=== PATIENT | male | born 1985 | race Two or more races ===

== ENCOUNTER 2017-07-01 11:50 | Emergency (ER) | payer SELFPAY ==
[2017-07-01] MEDS ORDERED: Ketorolac 60 MG/2 ML SDV IM ONE (12:31)
--- NOTE | 2017-07-01 12:31 | EDM.PDOC ---
ED HPI GENERAL MEDICAL PROBLEM - General Chief Complaint: ENT Problem Stated Complaint: SWOLLEN THROAT Time Seen by Provider: 07/01/17 11:51 Source of Information: Reports: Patient History Limitations: Reports: No Limitations - History of Present Illness INITIAL COMMENTS - FREE TEXT/NARRATIVE: HISTORY AND PHYSICAL: History of present illness: [Patient comes to the emergency room complaining of an exquisitely sore throat. Symptoms started yesterday and were mild but woke up this morning due to pain in being significantly worse today. He denies fever and chills. No headache or earaches. Pain worsens with swallowing. No cough, chest pain, shortness of breath or difficulty breathing. Occasional nausea but no vomiting. He denies abdominal pain. Was unable to work today due to the pain. He has not taken any medication for his symptoms. No previous history of similar symptoms in the past.] Review of systems: As per history of present illness and below otherwise all systems reviewed and negative. Past medical history: As per history of present illness and as reviewed below otherwise noncontributory. Surgical history: As per history of present illness and as reviewed below otherwise noncontributory. Social history: No reported history of drug or alcohol abuse. Family history: As per history of present illness and as reviewed below otherwise noncontributory. Physical exam: HEENT: Atraumatic, normocephalic. Oral mucous membranes are pink and moist. Posterior oropharynx is brightly erythematous and swollen. Uvula is enlarged, brightly erythematous and appears to be touching the back of his tongue. Neck is supple, no lymphadenopathy is appreciated. Lungs: Clear to auscultation, breath sounds equal bilaterally. Heart: S1S2, regular rate and rhythm. Abdomen: Soft, nondistended, nontender. Masses guarding or rebound. Pelvis: Stable nontender. Genitourinary: Deferred. Rectal: Deferred. Extremities: Atraumatic. Neurovascular unremarkable. Neuro: Awake, alert, oriented. Cranial nerves II through XII unremarkable. Cerebellum unremarkable. Motor and sensory unremarkable throughout. Exam nonfocal. Diagnostics: [Strep swab] Therapeutics: [ibuprofen 800mg po, Rocephin 1 g IM] Impression: [Uvulitis] Plan: [Strep swab is negative. Will treat with Amoxicillin 875 mg #20 sig one by mouth twice a day 0 refills. Rocephin 1 g IM given in ER. Instructed patient to push fluids, get plenty of rest, Tylenol alternating with ibuprofen. Strict return precautions are reviewed. Patient in agreement with today's plan.] Definitive disposition and diagnosis as appropriate pending reevaluation and review of above. throat Pain Score (Numeric/FACES): 10 - Related Data Allergies Allergy/AdvReac Type Severity Reaction Status Date / Time No Known Allergies Allergy Verified 07/01/17 12:12 Home Meds: Home Meds . [No Known Home Meds] 07/01/17 [History] Past Medical History - Past Health History Medical/Surgical History: Denies Medical/Surgical History Social & Family History - Family History Family Medical History: Noncontributory - Tobacco Use Smoking Status *Q: Never Smoker Second Hand Smoke Exposure: No - Caffeine Use Caffeine Use: Reports: Coffee, Soda - Recreational Drug Use Recreational Drug Use: Yes Recreational Drug Type: Reports: Marijuana/Hashish Recreational Drug Use Frequency: Daily ED ROS ENT - Review of Systems Review Of Systems: ROS reveals no pertinent complaints other than HPI. ED EXAM, ENT - Physical Exam Exam: See Below Course - Vital Signs Last Recorded V/S: Last Vital Signs Temp 98.0 F 07/01/17 12:12 Pulse 83 07/01/17 12:12 Resp 18 07/01/17 12:12 BP 109/62 07/01/17 12:12 Pulse Ox 98 07/01/17 12:12 - Orders/Labs/Meds Orders: Active Orders 24 hr Category Date Time Status CULTURE STREP A CONFIRMATION [RM] Stat Lab 07/01/17 12:30 Results STREP SCRN A RAPID W CULT CONF [RM] Stat Lab 07/01/17 12:30 Results Meds: Medications Discontinued Medications Generic Name Dose Route Start Last Admin Trade Name Freq PRN Reason Stop Dose Admin Ceftriaxone Sodium 1,000 mg/ 4 mls @ 4 mls/sec 07/01/17 12:56 07/01/17 13:07 Lidocaine HCl IM 07/01/17 12:57 4 mls/sec ONETIME ONE Administration Ibuprofen 800 mg 07/01/17 12:34 07/01/17 13:07 Motrin PO 07/01/17 12:35 800 mg ONETIME ONE Administration Ketorolac Tromethamine 60 mg 07/01/17 12:31 07/01/17 13:07 Toradol IM 07/01/17 12:32 Not Given ONETIME ONE Departure - Departure Time of Disposition: 12:55 Disposition: Home, Self-Care 01 Condition: Good Clinical Impression: Uvulitis - Discharge Information Instructions: Uvulitis Referrals: PCP,None [Primary Care Provider] - Forms: ED Department Discharge Additional Instructions: The following information is given to patients seen in the emergency department who are being discharged to home. This information is to outline your options for follow-up care. We provide all patients seen in our emergency department with a follow-up referral. The need for follow-up, as well as the timing and circumstances, are variable depending upon the specifics of your emergency department visit. If you don't have a primary care physician on staff, we will provide you with a referral. We always advise you to contact your personal physician following an emergency department visit to inform them of the circumstance of the visit and for follow-up with them and/or the need for any referrals to a consulting specialist. The emergency department will also refer you to a specialist when appropriate. This referral assures that you have the opportunity for follow-up care with a specialist. All of these measure are taken in an effort to provide you with optimal care, which includes your follow-up. Under all circumstances we always encourage you to contact your private physician who remains a resource for coordinating your care. When calling for follow-up care, please make the office aware that this follow-up is from your recent emergency room visit. If for any reason you are refused follow-up, please contact the [facility] emergency department at and asked to speak to the emergency department charge nurse. [facility] [address] [place] [id number] Follow-up with your primary care provider at the clinic listed above in 48-72 hours. Take antibiotics as prescribed. Push fluids, avoid dehydration, alternate Tylenol and ibuprofen as needed for discomfort. Return to ER as needed as discussed. - My Orders Last 24 Hours: My Active Orders 07/01/17 12:30 CULTURE STREP A CONFIRMATION [] Stat STREP SCRN A RAPID W CULT CONF [] Stat - Assessment/Plan Last 24 Hours: My Active Orders 07/01/17 12:30 CULTURE STREP A CONFIRMATION [RM] Stat STREP SCRN A RAPID W CULT CONF [RM] Stat
[2017-07-01] MEDS ORDERED: Ibuprofen 800 MG Tab PO ONE (12:34)
[2017-07-01] MEDS ORDERED: cefTRIAXone 1,000 MG in Lidocaine 1% 4 ML IM ONE (12:56)
== END 2017-07-01 13:48 | disposition home or self-care (01) ==
LOC: MW.ED 11:50
DX: K12.2 Cellulitis and abscess of mouth (principal)
CPT/HCPCS: 87081; 87880; 96372; 99283; A9270; J0696

== ENCOUNTER 2017-07-02 10:58 | Emergency (ER) | payer SELFPAY ==
[2017-07-02] MEDS ORDERED: Sodium Chloride 0.9% 10 ML Syringe FLUSH PRN (11:51)
[2017-07-02] MEDS ORDERED: Clindamycin Phosphate in D5W 600 MG in Premix Bag 50 BAG IV ONE ×2 (11:51)
[2017-07-02] MEDS ORDERED: Sodium Chloride 0.9% 2.5 ML Syringe FLUSH PRN (11:51)
--- NOTE | 2017-07-02 11:52 | EDM.PDOC ---
ED HPI GENERAL MEDICAL PROBLEM - General Chief Complaint: ENT Problem Stated Complaint: SORE THROAT Time Seen by Provider: 07/02/17 11:03 Source of Information: Reports: Patient History Limitations: Reports: No Limitations - History of Present Illness INITIAL COMMENTS - FREE TEXT/NARRATIVE: History of present illness: []Patient was seen yesterday for sore throat tested negative for strep but on amoxicillin. Patient returns with worsening pain in his throat and pressure on the left side of his neck. He has no difficulty swallowing, breathing or speaking. Review of systems: As per history of present illness and below otherwise all systems reviewed and negative. Past medical history: As per history of present illness and as reviewed below otherwise noncontributory. Surgical history: As per history of present illness and as reviewed below otherwise noncontributory. Social history: No reported history of drug or alcohol abuse. Family history: As per history of present illness and as reviewed below otherwise noncontributory. Physical exam: General: Well developed, well nourished in NAD HEENT: Atraumatic, normocephalic, pupils reactive, negative for conjunctival pallor or scleral icterus, mucous membranes moist, throat erythematous there is increased swelling on the left tonsillar area, neck supple, nontender, trachea midline. No stridor Lungs: Clear to auscultation, breath sounds equal bilaterally, chest nontender. Heart: S1S2, regular, negative for clicks, rubs, or JVD. Abdomen: Soft, nondistended, nontender. Negative for masses or hepatosplenomegaly. Negative for costovertebral tenderness. Pelvis: Stable nontender. Genitourinary: Deferred. Rectal: Deferred. Extremities: Atraumatic, negative for cords or calf pain. Neurovascular unremarkable. Neuro: Awake, alert, oriented. Cranial nerves II through XII unremarkable. Cerebellum unremarkable. Motor and sensory unremarkable throughout. Exam nonfocal. Diagnostics: []ct neck shows ill defined fluid collection 2x1.4 cm Therapeutics: []clindamycin and decadron given, toradol for pain, I attempted to drain the abscess with a 19-gauge needle without success. Dr. Khalil was consulted at [facility] as we do not have ENT coverage this week. He reviewed the CT and recommended steroids and clindamycin and for him to return to the ER if symptoms get worse as this may be an early abscess. Impression: []left peritonsillar abscess Plan: clindamycin, tramadol for pain, return to ED immediately if symptoms worsen Definitive disposition and diagnosis as appropriate pending reevaluation and review of above. Throat Pain Score (Numeric/FACES): 10 - Related Data Allergies Allergy/AdvReac Type Severity Reaction Status Date / Time No Known Allergies Allergy Verified 07/02/17 11:16 Home Meds: Home Meds Clindamycin HCl 300 mg PO TID #30 capsule 07/02/17 [Rx] traMADol HCl [Tramadol HCl] 50 mg PO Q6H PRN #16 tablet 07/02/17 [Rx] Past Medical History - Past Health History Medical/Surgical History: Denies Medical/Surgical History Social & Family History - Family History Family Medical History: Noncontributory - Tobacco Use Smoking Status *Q: Never Smoker Second Hand Smoke Exposure: No - Caffeine Use Caffeine Use: Reports: Coffee, Soda - Recreational Drug Use Recreational Drug Use: No Recreational Drug Type: Reports: Marijuana/Hashish Recreational Drug Use Frequency: Daily ED ROS ENT - Review of Systems Review Of Systems: See Below (See history of present illness) ED EXAM, ENT - Physical Exam Exam: See Below (See history of present illness) Course - Vital Signs Last Recorded V/S: Last Vital Signs Temp 97.8 F 07/02/17 11:14 Pulse 69 07/02/17 11:14 Resp 18 07/02/17 11:14 BP 109/72 07/02/17 11:14 Pulse Ox 98 07/02/17 11:14 - Orders/Labs/Meds Orders: Active Orders 24 hr Category Date Time Status Sodium Chloride 0.9% [Saline Flush] Med 07/02/17 11:51 Active 10 ml FLUSH ASDIRECTED PRN Sodium Chloride 0.9% [Saline Flush] Med 07/02/17 11:51 Active 2.5 ml FLUSH ASDIRECTED PRN Saline Lock Insert [OM.PC] Stat Oth 07/02/17 11:51 Ordered Medication Orders Sodium Chloride (Saline Flush) 10 ml FLUSH ASDIRECTED PRN PRN Reason: Keep Vein Open Last Admin: 07/02/17 12:58 Dose: 10 ml Sodium Chloride (Saline Flush) 2.5 ml FLUSH ASDIRECTED PRN PRN Reason: Keep Vein Open Last Admin: 07/02/17 12:58 Dose: 2.5 ml Meds: Medications Generic Name Dose Route Start Last Admin Trade Name Leon PRN Reason Stop Dose Admin Sodium Chloride 10 ml 07/02/17 11:51 07/02/17 12:58 Saline Flush FLUSH 10 ml ASDIRECTED PRN Administration Keep Vein Open Sodium Chloride 2.5 ml 07/02/17 11:51 07/02/17 12:58 Saline Flush FLUSH 2.5 ml ASDIRECTED PRN Administration Keep Vein Open Discontinued Medications Generic Name Dose Route Start Last Admin Trade Name Leon PRN Reason Stop Dose Admin Benzocaine 1 each 07/02/17 11:54 07/02/17 12:41 Hurricaine One 20% MUCMEM 07/02/17 11:55 4 each ONETIME ONE Administration Dexamethasone 10 mg 07/02/17 12:47 07/02/17 13:15 Dexamethasone IVPUSH 07/02/17 12:48 10 mg ONETIME ONE Administration Clindamycin Phosphate 600 mg/ 50 mls @ 100 mls/hr 07/02/17 11:51 07/02/17 12: 39 Premix IV 07/02/17 12:20 100 mls/hr ONETIME ONE Administration Iopamidol 80 ml 07/02/17 13:02 07/02/17 13:03 Isovue Multipack-370 (76%) IVPUSH 07/02/17 13:03 80 ml ONETIME STA Administration Ketorolac Tromethamine 30 mg 07/02/17 14:27 07/02/17 15:15 Toradol IVPUSH 07/02/17 14:28 30 mg ONETIME ONE Administration Departure - Departure Time of Disposition: 15:28 Disposition: Home, Self-Care 01 Condition: Good Clinical Impression: Peritonsillar abscess - Discharge Information Prescriptions: Clindamycin HCl 300 mg PO TID #30 capsule traMADol HCl [Tramadol HCl] 50 mg PO Q6H PRN #16 tablet PRN Reason: Pain Instructions: Peritonsillar Abscess, [id number] Referrals: PCP,None [Primary Care Provider] - Forms: ED Department Discharge - My Orders Last 24 Hours: My Active Orders 07/02/17 11:51 Sodium Chloride 0.9% [Saline Flush] 10 ml FLUSH ASDIRECTED PRN Sodium Chloride 0.9% [Saline Flush] 2.5 ml FLUSH ASDIRECTED PRN Saline Lock Insert [OM.PC] Stat - Assessment/Plan Last 24 Hours: My Active Orders 07/02/17 11:51 Sodium Chloride 0.9% [Saline Flush] 10 ml FLUSH ASDIRECTED PRN Sodium Chloride 0.9% [Saline Flush] 2.5 ml FLUSH ASDIRECTED PRN Saline Lock Insert [OM.PC] Stat
[2017-07-02] MEDS: Benzocaine 20% Topical Spray UD MUCMEM ONE ×2 (12:40→12:41)
[2017-07-02] MEDS ORDERED: Dexamethasone 10 MG/ML SDV IVPUSH ONE (12:47)
[2017-07-02] MEDS ORDERED: Iopamidol 755 MG/ML 500 ML Multipack Bottle IVPUSH STA (13:02)
--- NOTE | 2017-07-02 13:41 | CT ---
EXAMINATION: CT soft tissue neck with contrast HISTORY: Swelling COMPARISON: None TECHNIQUE: Axial CT images obtained through the neck following the administration of 80 mL of Isovue- 370 in the right antecubital fossa. Coronal and sagittal reconstructions obtained. FINDINGS: The left palatine tonsil is enlarged containing a 2.1 x 1.4 cm ill-defined fluid collection . There is mild mass effect on the airway without significant narrowing. Otherwise the pharyngeal muc osal structures appear preserved. No bulky cervical lymphadenopathy. The parotid and submandibular gl ands appear normal. Small mucous retention cyst within the maxillary sinuses. Mastoid air cells and m iddle ears are clear. Orbits and globes are symmetric. Visualized intracranial components are normal. The thyroid is normal. The lung apices are clear. IMPRESSION: 1. There is a 2.1 x 1.4 cm left palatine tonsillar abscess.
[2017-07-02] MEDS ORDERED: Ketorolac 30 MG/ML SDV IVPUSH ONE (14:27)
== END 2017-07-02 15:54 | disposition home or self-care (01) ==
LOC: MW.ED 10:58
DX: J36 Peritonsillar abscess (principal)
CPT/HCPCS: 70491; 96365; 96375; 99283; A9270; J1100; J1885; Q9967; 99284